=== PATIENT | male | born 1965 | race Caucasian/White ===

== ENCOUNTER 2017-07-18 09:22 | Emergency (ER) | payer OTHER ==
[2017-07-18 09:22] VITALS: BMI 32.3
--- NOTE | 2017-07-18 09:53 | ED PDOC ---
Arrival/HPI - General Chief Complaint: High Blood Sugar Time Seen by Provider: 07/18/17 09:47 Historian: Patient - History of Present Illness Narrative History of Present Illness (Text): 07/18/17 09:48 52 y/o pmh including hyperlipidemia/dm (oral metformin)/CABG, nkda, c/o elevated blood sugar the past 2 weeks. Pt. stated that he has been checking FS at home which noted to be elevated (not sure what number), had 3 pancake this morning around 7am and went to the [facility] to check his FS which noted to be 500s, told to come to the ER, incidentally the patient has been out of the metformin 500mg po bid (only medication his on) for 3 months, no chest pain or shortness of breath, no night sweat, no dizziness, no palpitation, no other medical or psychological complaints. Past Medical History - Provider Review Nursing Documentation Reviewed: Yes - Infectious Disease Hx of Infectious Diseases: None - Cardiac Hx Hypertension: Yes Hx Pacemaker: No Other/Comment: cardiac stent - Neurological Hx Paralysis: No - Endocrine/Metabolic Hx Diabetes Mellitus Type 2: Yes - Hematological/Oncological Hx Blood Transfusions: No Hx Blood Transfusion Reaction: No - Musculoskeletal/Rheumatological Hx Musculoskeletal Disorders: No - Psychiatric Hx Emotional Abuse: No Hx Physical Abuse: No Hx Substance Use: No - Surgical History Hx Open Heart Surgery: Yes - Anesthesia Hx Anesthesia: Yes Hx Anesthesia Reactions: No Hx Malignant Hyperthermia: No - Suicidal Assessment Feels Threatened In Home Enviroment: No Family/Social History - Physician Review Nursing Documentation Reviewed: Yes Family/Social History: Unknown Family HX Smoking Status: Current Some Days Smoker Hx Alcohol Use: Yes Frequency of alcohol use: Socially Hx Substance Use: No Hx Substance Use Treatment: No Allergies/Home Meds Allergies/Adverse Reactions: Allergies No Known Allergies Allergy (Verified 07/18/17 09:40) Review of Systems - Review of Systems Constitutional: Other (+thirsty). absent: Fatigue, Fevers Eyes: absent: Vision Changes ENT: absent: Hearing Changes Respiratory: absent: SOB, Cough Cardiovascular: absent: Chest Pain Gastrointestinal: absent: Abdominal Pain, Nausea, Vomiting Musculoskeletal: absent: Arthralgias, Back Pain Skin: absent: Rash, Pruritis Neurological: absent: Headache, Dizziness Psychiatric: absent: Anxiety, Depression Physical Exam Vital Signs Reviewed: Yes Vital Signs Temp Pulse Resp BP Pulse Ox 07/18/17 12:00 65 18 126/95 H 99 07/18/17 10:05 98.8 F 69 17 154/87 H 98 07/18/17 09:36 98.6 F 77 18 128/77 98 Temperature: Afebrile Blood Pressure: Normal Pulse: Regular Respiratory Rate: Normal Appearance: Positive for: Well-Appearing, Non-Toxic, Comfortable Pain Distress: None Mental Status: Positive for: Alert and Oriented X 3 - Systems Exam Head: Present: Atraumatic, Normocephalic Pupils: Present: PERRL Extroacular Muscles: Present: EOMI Conjunctiva: Present: Normal Mouth: Present: Moist Mucous Membranes Pharnyx: No: ERYTHEMA, EXUDATE, TONSILS ENLARGED Nose (External): Present: Atraumatic. No: Abrasion, Contusion, Laceration Nose (Internal): Present: Normal Inspection, No Active Bleeding. No: Rhinorrhea , Septal Hematoma, Epistaxis Neck: Present: Normal Range of Motion, Trachea Midline. No: Meningeal Signs, MIDLINE TENDERNESS, Paraspinal Tenderness, Lymphadenopathy Respiratory/Chest: Present: Clear to Auscultation, Good Air Exchange. No: Respiratory Distress, Accessory Muscle Use, Wheezes, Decreased Breath Sounds, Rales, Retracting, Rhonchi, Tachypneic, Tender to Palpation Cardiovascular: Present: Regular Rate and Rhythm, Normal S1, S2. No: Murmurs Abdomen: Present: Normal Bowel Sounds. No: Tenderness, Distention, Peritoneal Signs, Rebound, Guarding Back: Present: Normal Inspection Upper Extremity: Present: Normal Inspection. No: Cyanosis, Edema Lower Extremity: Present: Normal Inspection. No: Edema Neurological: Present: GCS=15, CN II-XII Intact, Speech Normal, Motor Func Grossly Intact, Gait Normal, Memory Normal Skin: Present: Warm, Dry, Normal Color. No: Rashes Psychiatric: Present: Alert, Oriented x 3, Normal Insight, Normal Concentration Medical Decision Making ED Course and Treatment: 07/18/17 10:11 -labs/serum osmolarity/ua (no acetone lab available)/abg -IVF bolus -cxr -observe and reassess 07/18/17 13:16 -ABG: ph 7.41, CO2 43, HCO3 27.3: there is no signs of DKA -Labs are non-significant -UA show no UTI but there is glucose -Chest xray show no active disease -Metformin 500mg po ordered. -Finger stick repeat 293 after 2 L of IVF, pt. is asymptomatic, feels well. -I discussed with the patient that he should see his own pmd for hgba1c check with nutrionist and elastic yarn twister for follow up, pt. verbally expressed understanding. -Discharge home with metformin, please follow up with your own pmd for hgba1c check with nutrionist and elastic yarn twister for follow up within 2 days, return to the ER for any new or worsening signs or symptoms. Dont check your sugar after eating as it will always be high. - Lab Interpretations Lab Results: 07/18/17 10:15 07/18/17 10:15 Lab Results 07/18/17 11:49: POC Glucose (mg/dL) 352 H 07/18/17 10:15: Sodium 133, Chloride 95 L, Potassium 4.3, Carbon Dioxide 28, Anion Gap 15, BUN 15, Creatinine 0.6 L, Est GFR ( Amer) > 60, Est GFR ( Non-Af Amer) > 60, Random Glucose 600 H* D, Calcium 10.3, Magnesium 1.9, Total Bilirubin 0.7, AST 21, ALT 38, Alkaline Phosphatase 109, NT-Pro-B Natriuret Pep 29.7, Total Protein 7.0, Albumin 4.0, Globulin 3.0, Albumin/Globulin Ratio 1.3 07/18/17 10:15: WBC 5.9, RBC 4.89, Hgb 14.3 D, Hct 42.5, MCV 86.9, MCH 29.2, MCHC 33.6, RDW 12.8, Plt Count 159, MPV 11.7 H, Gran % 69.6 H, Lymph % (Auto) 21.6 L, [place] % (Auto) 6.6 H, Eos % (Auto) 1.9, Baso % (Auto) 0.3, Gran # 4.13, Lymph # (Auto) 1.3, [place] # (Auto) 0.4, Eos # (Auto) 0.1, Baso # (Auto) 0.02 07/18/17 10:12: pCO2 43, pO2 81.0, HCO3 27.3, ABG pH 7.41, ABG Total CO2 28.6 H , ABG O2 Saturation 97.9, ABG Base Excess 2.2, ABG Potassium 3.8, Sodium 134.0, Chloride 102.0, Glucose 516 H*, Lactate 0.8, FiO2 21.0, Arterial Blood Potassium 3.8 07/18/17 10:01: Urine Color Colorless, Urine Appearance Clear, Urine pH 7.0, Ur Specific [place] 1.010, Urine Protein Negative, Urine Glucose (UA) >=1000, Urine Ketones Negative, Urine Blood Negative, Urine Nitrate Negative, Urine Bilirubin Negative, Urine Urobilinogen 0.2, Ur Leukocyte Esterase Negative 07/18/17 09:50: POC Glucose (mg/dL) > 500 H* - RAD Interpretation Radiology Orders: 07/18/17 10:06 CHEST PORTABLE [RAD] Stat - Medication Orders Current Medication Orders: Discontinued Medications Sodium Chloride (Sodium Chloride 0.9%) 1,000 mls @ 1,000 mls/hr IV .Q1H STA Stop: 07/18/17 11:00 Last Admin: 07/18/17 10:27 Dose: 1,000 mls/hr eMAR Start Stop Document 07/18/17 10:27 SF (Rec: 07/18/17 10:27 [id number] Intravenous Solution Start Date 07/18/17 Start Time 10:27 End Date 07/18/17 End time 11:27 Total Infusion Time 60 Sodium Chloride (Sodium Chloride 0.9%) 1,000 mls @ 999 mls/hr IV .Q1H1M STA Stop: 07/18/17 12:39 Last Admin: 07/18/17 11:56 Dose: 999 mls/hr eMAR Start Stop Document 07/18/17 11:56 SF (Rec: 07/18/17 11:56 [id number] Intravenous Solution Start Date 07/18/17 Start Time 11:56 End Date 07/18/17 End time 12:57 Total Infusion Time 61 Metformin HCl (Glucophage) 500 mg PO STAT STA Stop: 07/18/17 12:30 - 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 Disposition/Present on Arrival - Present on Arrival Any Indicators Present on Arrival: No History of DVT/PE: No History of Uncontrolled Diabetes: No Urinary Catheter: No History of Decub. Ulcer: No History Surgical Site Infection Following: None - Disposition Have Diagnosis and Disposition been Completed?: Yes Diagnosis: Diabetes mellitus, Non-compliant patient, Hyperglycemia Disposition: HOME/ ROUTINE Disposition Time: 11:41 Patient Plan: Discharge Patient Problems: Current Active Problems Problem Status Onset Diabetes mellitus Acute Hyperglycemia Acute Non-compliant patient Acute Condition: IMPROVED Discharge Instructions (ExitCare): Hyperglycemia, Adult (DC), Blood Glucose Monitoring, Diabetes Type 2 (DC), Diabetes and Diet Print Language: LIBERIAN Additional Instructions: -Discharge home with metformin, please follow up with your own pmd for hgba1c check with nutrionist and elastic yarn twister for follow up within 2 days, return to the ER for any new or worsening signs or symptoms. Dont check your sugar after eating as it will always be high. Prescriptions: metFORMIN [glucOPHAGE] 500 mg PO BID #60 tab Referrals: Isabela Chowdhury APN-C [Primary Care Provider] - Follow up with primary Cam,Whitney Tamayo MD [Medical Doctor] - Follow up with primary [facility]] - Follow up with primary Forms: [employer] (Bahraini), WORK NOTE
[2017-07-18] MEDS ORDERED: Sodium Chloride 0.9% 1,000 ML IV STA ×2 (10:01→11:39)
[2017-07-18 10:06] VITALS: TEMP 98.8
[2017-07-18 10:59] LABS: ARTERIAL BLOOD GAS HCO3 27.3 mmol/L (21-28); ARTERIAL BLOOD GAS O2 SAT 97.9 % (95-98); ARTERIAL BLOOD GAS PCO2 43 mm/Hg (35-45); ARTERIAL BLOOD GAS PH 7.41 (7.35-7.45); ARTERIAL BLOOD GAS TCO2 28.6 mmol.L (22-28)
[2017-07-18 11:01] LABS: BASO # 0.02 K/mm3 (0.0-2.0); BASO % 0.3 % (0.0-3.0); EOS # 0.1 (0.0-0.7); EOS % 1.9 % (1.5-5.0); GRAN # 4.13 (1.4-6.5); GRAN % 69.6 % (50.0-68.0); HEMOGLOBIN 14.3 g/dL (14.0-18.0); LYMPH # 1.3 (1.2-3.4); LYMPH % 21.6 % (22.0-35.0); MEAN CELL VOLUME 86.9 fl (80.0-105.0); MEAN CORPUSCULAR HEMOGLOBIN 29.2 pg (25.0-35.0); MEAN CORPUSCULAR HGB CONC 33.6 g/dl (31.0-37.0); MEAN PLATELET VOLUME 11.7 fl (7.0-11.0); MONO # 0.4 (0.1-0.6); MONO % 6.6 % (1.0-6.0); RBC 4.89 10^6/uL (3.5-6.1); RED CELL DISTRIBUTION WIDTH 12.8 % (11.5-14.5); WHITE BLOOD COUNT 5.9 10^3/ul (4.5-11.0)
[2017-07-18 11:15] LABS: B-TYPE NATRIURETIC PEPTIDE 29.7 pg/mL (0-450)
[2017-07-18 11:21] LABS: ALB/GLOB RATIO 1.3 (1.1-1.8); ALT/SGPT 38 U/L (7-56); AST/SGOT 21 U/L (17-59); BLOOD UREA NITROGEN 15 mg/dL (7-21); CALCIUM 10.3 mg/dL (8.4-10.5); GFR AFRICAN-AMERICAN > 60; GFR NON-AFRICAN AMERICAN > 60; MAGNESIUM 1.9 mg/dL (1.7-2.2)
[2017-07-18 11:23] LABS: URINE BILIRUBIN NEGATIVE (NEGATIVE); URINE BLOOD NEGATIVE (NEGATIVE); URINE GLUCOSE (UA) >=1000 mg/dL (NEGATIVE); URINE LEUKOCYTE ESTERASE NEGATIVE Leu/uL (NEGATIVE); URINE NITRATE NEGATIVE (NEGATIVE); URINE PROTEIN NEGATIVE mg/dL (<30 mg/dL); URINE UROBILINOGEN 0.2 E.U./dL (<1 E.U./dL)
[2017-07-18 11:24] LABS: URINE APPEARANCE CLEAR (CLEAR); URINE COLOR COLORLESS (YELLOW)
--- NOTE | 2017-07-18 11:36 | RAD ---
HISTORY: medical clearance COMPARISON: 05/04/2012 FINDINGS: LUNGS: No active pulmonary disease. PLEURA: No significant pleural effusion identified, no pneumothorax apparent. CARDIOVASCULAR: Normal. OSSEOUS STRUCTURES: Sternal wires VISUALIZED UPPER ABDOMEN: Normal. OTHER FINDINGS: None. IMPRESSION: No active disease.
[2017-07-18] MEDS ORDERED: Insulin Regular 1 UNITS/0.01 ML ML IV STA (11:39)
[2017-07-18 12:01] VITALS: BP 126/95; PULSE 65; RESP 18; O2SAT 99
== END 2017-07-18 13:20 | disposition home or self-care (01) ==
LOC: ED 09:22
DX: E11.65 Type 2 diabetes mellitus with hyperglycemia (principal); Z79.84 Long term (current) use of oral hypoglycemic drugs; Z91.19 Patient's noncompliance with other medical treatment and regimen; I10 Essential (primary) hypertension; E78.5 Hyperlipidemia, unspecified; F17.210 Nicotine dependence, cigarettes, uncomplicated
CPT/HCPCS: 71045; 80053; 81003; 82803; 82948; 83735; 83880; 83930; 83935; 85025; 96360; 96361; 99285; J7040

== ENCOUNTER 2017-08-23 00:23 | Emergency (ER) | payer OTHER ==
[2017-08-23 00:24] VITALS: BMI 24.4
--- NOTE | 2017-08-23 00:30 | ED PDOC ---
Arrival/HPI - General Time Seen by Provider: 08/23/17 00:24 Historian: Patient, EMS - History of Present Illness Narrative History of Present Illness (Text): 08/23/17 00:26 A 52 year old male, whose past medical history includes hyperlipidemia, diabetes , and CABG, is brought into the emergency department via EMS for public alcohol intoxication. As per EMS, the patient was picked up off the street. The patient admits to drinking today. The patient denies any pain. Full HPI/ROS is unobtainable due to alcohol intoxication. Time/Duration: Prior to Arrival Symptom Course: Unchanged Context: Street Past Medical History - Provider Review Nursing Documentation Reviewed: Yes - Infectious Disease Hx of Infectious Diseases: None - Cardiac Hx Hypertension: Yes Hx Pacemaker: No Other/Comment: cardiac stent - Neurological Hx Paralysis: No - Endocrine/Metabolic Hx Diabetes Mellitus Type 2: Yes - Hematological/Oncological Hx Blood Transfusions: No Hx Blood Transfusion Reaction: No - Musculoskeletal/Rheumatological Hx Musculoskeletal Disorders: No - Psychiatric Hx Emotional Abuse: No Hx Physical Abuse: No Hx Substance Use: No - Surgical History Hx Open Heart Surgery: Yes - Anesthesia Hx Anesthesia: Yes Hx Anesthesia Reactions: No Hx Malignant Hyperthermia: No - Suicidal Assessment Feels Threatened In Home Enviroment: No Family/Social History - Physician Review Nursing Documentation Reviewed: Yes Family/Social History: No Known Family HX Smoking Status: Current Some Days Smoker Hx Alcohol Use: Yes Hx Substance Use: No Hx Substance Use Treatment: No Allergies/Home Meds Allergies/Adverse Reactions: Allergies No Known Allergies Allergy (Verified 07/18/17 09:40) Review of Systems - Physician Review All systems were reviewed & negative as marked: Yes - Review of Systems Systems not reviewed;Unavailable: Intoxicated Physical Exam - Physical Exam Narrative Physical Exam (Text): 08/23/17 00:28 Constitutional: No acute distress. Head: Atraumatic. Eyes: PERRL. ENT: Moist mucous membranes. Neck: Supple. No midline tenderness. Cardiovascular: Regular rate. Chest: No tenderness. Respiratory: Clear to auscultation bilaterally. GI: Soft. Nontender. Nondistended. Back: No CVA tenderness. No midline tenderness. Musculoskeletal: No tenderness or swelling of extremities. Full ROM x4. Pelvis stable. Skin: No rash. Midline sternotomy scar (old) Neurologic: Alert, no focal deficit. Vital Signs Temp Pulse Resp BP Pulse Ox 08/23/17 05:34 87 19 142/87 99 08/23/17 03:25 108 H 18 150/79 99 08/23/17 00:30 97.8 F 88 16 131/86 97 Medical Decision Making ED Course and Treatment: 08/23/17 00:30 Impression: A 52 year old male is brought into the emergency department by EMS for public alcohol intoxication. Plan: -- Reassess and disposition Progress Notes: 08/23/17 02:44: Patient was getting up and urinating on vital machine. Patient was sedated with 5mg of Haldol and placed on a monitor. 08/23/17 05:19: Restraints ordered and 2mg of Ativan administered. 08/23/17 06:21 Signed out to ED day team. - Lab Interpretations Lab Results: Lab Results 08/23/17 01:09: Alcohol, Quantitative 381 H* I have reviewed the lab results: Yes - Medication Orders Current Medication Orders: Discontinued Medications Haloperidol Lactate (Haldol) 5 mg IM STAT STA PRN Reason: Protocol Stop: 08/23/17 02:42 Last Admin: 08/23/17 02:44 Dose: IM Administration Charges Document 08/23/17 02:44 MS (Rec: 08/23/17 02:44 MS [id number]) Injection Site MAR Injection Site Left Deltoid Charges for Administration # of IM Administrations 1 Lorazepam (Ativan) 2 mg IM ONCE ONE PRN Reason: Protocol Stop: 08/23/17 05:18 Last Admin: 08/23/17 05:22 Dose: 2 mg IM Administration Charges Document 08/23/17 05:22 CNR (Rec: 08/23/17 05:23 CNR [id number]) Injection Site MAR Injection Site Right Deltoid Charges for Administration # of IM Administrations 1 - Scribe Statement The provider has reviewed the documentation as recorded by the Scribe Yesi Browne Provider Scribe Attestation: All medical record entries made by the Scribe were at my direction and personally dictated by me. I have reviewed the chart and agree that the record accurately reflects my personal performance of the history, physical exam, medical decision making, and the department course for this patient. I have also personally directed, reviewed, and agree with the discharge instructions and disposition. Disposition/Present on Arrival - Present on Arrival Any Indicators Present on Arrival: No History of DVT/PE: No History of Uncontrolled Diabetes: No Urinary Catheter: No History Surgical Site Infection Following: None - Disposition Have Diagnosis and Disposition been Completed?: No Diagnosis: Alcohol intoxication Disposition Time: 06:21 Condition: STABLE Referrals: PCP,NO [Primary Care Provider] - Follow up with primary
--- NOTE | 2017-08-23 07:08 | ED PDOC ---
Physical Exam Vital Signs Reviewed: Yes Vital Signs Temp Pulse Resp BP Pulse Ox 08/23/17 09:00 98.6 F 84 18 111/63 95 08/23/17 05:34 87 19 142/87 99 08/23/17 03:25 108 H 18 150/79 99 08/23/17 00:30 97.8 F 88 16 131/86 97 Temperature: Afebrile Blood Pressure: Normal Pulse: Regular Respiratory Rate: Normal Appearance: Positive for: Well-Appearing Pain Distress: None Mental Status: Positive for: Alert and Oriented X 3, other (slurr speech ( likely etoh), alert/awake, GCS = 15, oriented x 3, uncomfortable, NAD, cooperative) Finger Stick Blood Glucose: 193 - Systems Exam Head: Present: Atraumatic, Normocephalic Pupils: Present: PERRL, Other (no nystagmus, no photophobia, sclera anicteric) Extroacular Muscles: Present: EOMI Conjunctiva: Present: Normal Ears: Present: Normal Mouth: Present: Moist Mucous Membranes, Normal Teeth Pharnyx: Present: Normal Nose (Internal): Present: Normal Inspection Neck: Present: Normal Range of Motion, Trachea Midline. No: MIDLINE TENDERNESS Respiratory/Chest: Present: Clear to Auscultation, Good Air Exchange Cardiovascular: Present: Regular Rate and Rhythm, Normal S1, S2. No: Murmurs Abdomen: Present: Normal Bowel Sounds, Other (well nourished male, no focal tenderness, no delatorre's sign, no mcburney's point tenderness, no masses/rebound/ guarding/rigidity) Back: Present: Normal Inspection. No: CVA Tenderness, Midline Tenderness Upper Extremity: Present: Normal Inspection, Normal ROM, NORMAL PULSES, Neurovascularly Intact. No: Deformity Lower Extremity: Present: Normal Inspection, NORMAL PULSES, Normal ROM, Neurovascularly Intact, Capillary Refill < 2 s Neurological: Present: GCS=15, CN II-XII Intact Skin: Present: Warm, Dry, Normal Color, Other (cap refill < 1sec, no ulcerations , no petechiae) Psychiatric: Present: Alert Medical Decision Making ED Course and Treatment: 08/23/17 07:07 pt was endorsed to me by Dr Dickinson, awaiting soberity; due to patient's behavior, pt was chemically sedated as well; pt can be dispositioned accordingly 08/23/17 09:45 pt is now wide awake pt still appearing slightly groggy but answers questions appropriately pt states he is not suicidal/homicidal pt states he has no hallucinations - visual/auditory/tactile vital signs are stable pt is able to ambulate without any difficulties pt is made aware of his medical results pt is encouraged not to drink alcohol/avoid smoking if he smokes pt is encouraged to take his medications pt is encouraged fluid hydration pt will f/u as directed pt will be discharged home Re-evaluation Time: 09:39 Reassessment Condition: Re-examined, Improved - Lab Interpretations Lab Results: Lab Results 08/23/17 01:09: Alcohol, Quantitative 381 H* I have reviewed the lab results: Yes Interpretation: Abnormal lab values (+ elevated etoh) - Medication Orders Current Medication Orders: Discontinued Medications Haloperidol Lactate (Haldol) 5 mg IM STAT STA PRN Reason: Protocol Stop: 08/23/17 02:42 Last Admin: 08/23/17 02:44 Dose: IM Administration Charges Document 08/23/17 02:44 MS (Rec: 08/23/17 02:44 MS [id number]) Injection Site MAR Injection Site Left Deltoid Charges for Administration # of IM Administrations 1 Lorazepam (Ativan) 2 mg IM ONCE ONE PRN Reason: Protocol Stop: 08/23/17 05:18 Last Admin: 08/23/17 05:22 Dose: 2 mg IM Administration Charges Document 08/23/17 05:22 CNR (Rec: 08/23/17 05:23 CNR [id number]) Injection Site MAR Injection Site Right Deltoid Charges for Administration # of IM Administrations 1 Disposition/Present on Arrival - Present on Arrival Any Indicators Present on Arrival: No History of DVT/PE: No History of Uncontrolled Diabetes: No Urinary Catheter: No History of Decub. Ulcer: No History Surgical Site Infection Following: None - Disposition Have Diagnosis and Disposition been Completed?: Yes Diagnosis: Alcohol intoxication, Alcohol abuse, General medical exam Disposition: HOME/ ROUTINE Disposition Time: 10:00 Patient Plan: Discharge Patient Problems: Current Active Problems Problem Status Onset Alcohol intoxication Acute Condition: STABLE Discharge Instructions (ExitCare): Alcohol Abuse and Alcoholism (DC), Effects of Alcohol on Your Health Print Language: KOSOVAN Additional Instructions: Make sure to see your doctor in 1-2 days DRINK PLENTY OF FLUIDS DONT DRINK ALCOHOL DONT smoke if you smoke take your medications as prescribed RETURN TO ED IF worse pain, cant breath, persistent vomiting, high fever >101- 102 for hours, altered behavior, slurr speech, facial changes, focal weakness ( arm/leg or both), severe depression, suicidal/homicidal thoughts, unable to urinate, heavy/persistent bleeding, passing out, chest pain, or other medical emergencies Referrals: PCP,NO [Primary Care Provider] - Follow up with primary [facility] [place] [facility] [place] - Follow up with primary Forms: [employer] (Iranian)
[2017-08-23 09:32] VITALS: BP 111/63; PULSE 84; RESP 18; TEMP 98.6; O2SAT 95
== END 2017-08-23 10:03 | disposition home or self-care (01) ==
LOC: ED 00:23
DX: F10.129 Alcohol abuse with intoxication, unspecified (principal); E78.5 Hyperlipidemia, unspecified; E11.9 Type 2 diabetes mellitus without complications; I10 Essential (primary) hypertension; F17.200 Nicotine dependence, unspecified, uncomplicated
CPT/HCPCS: 80320; 96372; 99285; J1630; J2060

== ENCOUNTER 2017-10-18 00:40 | Emergency (ER) | payer OTHER ==
[2017-10-18 00:41] VITALS: BMI 24.4
[2017-10-18 00:54] VITALS: RESP 18; TEMP 98.4
--- NOTE | 2017-10-18 00:56 | ED PDOC ---
Arrival/HPI - General Historian: Patient, EMS - History of Present Illness Time/Duration: Prior to Arrival Symptom Course: Unchanged Activities at Onset: Rest, Light Context: Home <Hi Powers - Last Filed: 10/18/17 01:51> <CrystalvirginiaEzekiel - Last Filed: 10/18/17 06:38> - General Time Seen by Provider: 10/18/17 00:48 - History of Present Illness Narrative History of Present Illness (Text): 10/18/17 00:52 A 52 year old male, whose past medical history includes hypertension, diabetes, CAD, presents to the emergency department via EMS for alcohol intoxication. Patient presents to the emergency department for further evaluation after he was found at home intoxicated by . She called Devorah PANDYA, who called EMS to bring the patient into the emergency department. Patient presents with a fingerstick of 251, +etoh. He is alert and oriented X 3. The patient currently denies any complaints. The patient denies fevers, chills, headache, dizziness, chest pain, shortness of breath, dyspnea on exertion, cough, abdominal pain, nausea, vomiting, diarrhea, back pain, neck pain, urinary/bowel changes, suicidal/homicidal ideation, auditory/visual hallucination, trauma/injury or any other complaint. (Hi Powers) Past Medical History - Provider Review Nursing Documentation Reviewed: Yes - Infectious Disease Hx of Infectious Diseases: None - Cardiac Hx Hypertension: Yes Hx Pacemaker: No Other/Comment: cardiac stent - Neurological Hx Paralysis: No - Endocrine/Metabolic Hx Diabetes Mellitus Type 2: Yes - Hematological/Oncological Hx Blood Transfusions: No Hx Blood Transfusion Reaction: No - Musculoskeletal/Rheumatological Hx Musculoskeletal Disorders: No - Psychiatric Hx Emotional Abuse: No Hx Physical Abuse: No Hx Substance Use: No - Surgical History Hx Open Heart Surgery: Yes - Anesthesia Hx Anesthesia: Yes Hx Anesthesia Reactions: No Hx Malignant Hyperthermia: No - Suicidal Assessment Feels Threatened In Home Enviroment: No <Hi Powers - Last Filed: 10/18/17 01:51> Family/Social History - Physician Review Nursing Documentation Reviewed: Yes Family/Social History: No Known Family HX Smoking Status: Current Some Days Smoker Hx Alcohol Use: Yes Hx Substance Use: No Hx Substance Use Treatment: No <Hi Powers - Last Filed: 10/18/17 01:51> Allergies/Home Meds <Hi Powers - Last Filed: 10/18/17 01:51> <CrystalvirginiaEzekiel - Last Filed: 10/18/17 06:38> Allergies/Adverse Reactions: Allergies No Known Allergies Allergy (Verified 10/18/17 00:49) Home Medications: Home Meds Medication Instructions Recorded Confirmed Unobtainable 10/18/17 10/18/17 Review of Systems - Physician Review All systems were reviewed & negative as marked: Yes - Review of Systems Systems not reviewed;Unavailable: Intoxicated Constitutional: absent: Fevers, Night Sweats Respiratory: absent: SOB, Cough Cardiovascular: absent: Chest Pain, HOUSE Gastrointestinal: absent: Abdominal Pain, Stool Changes, Diarrhea, Nausea, Vomiting Genitourinary Male: absent: Urinary Output Changes Musculoskeletal: absent: Back Pain, Neck Pain Neurological: absent: Headache, Dizziness Psychiatric: absent: Anxiety, Depression, Suicidal Ideation <Hi Powers Kim - Last Filed: 10/18/17 01:51> Physical Exam Vital Signs Reviewed: Yes Temperature: Afebrile Blood Pressure: Hypertensive Pulse: Tachycardic Respiratory Rate: Normal Appearance: Positive for: Well-Appearing, Non-Toxic, Comfortable Pain Distress: None Mental Status: Positive for: Alert and Oriented X 3 - Systems Exam Head: Present: Atraumatic, Normocephalic Pupils: Present: PERRL Extroacular Muscles: Present: EOMI Conjunctiva: Present: Normal Ears: Present: NORMAL TM, Normal Canal. No: Erythema Mouth: Present: Moist Mucous Membranes Pharnyx: Present: Normal. No: ERYTHEMA, EXUDATE, TONSILS ENLARGED Nose (External): Present: Atraumatic. No: Abrasion, Contusion, Laceration, Lesions Nose (Internal): Present: Normal Inspection, No Active Bleeding. No: Rhinorrhea , Septal Deviation, Septal Hematoma, Epistaxis Neck: Present: Normal Range of Motion Respiratory/Chest: Present: Clear to Auscultation, Good Air Exchange. No: Respiratory Distress, Accessory Muscle Use Cardiovascular: Present: Regular Rate and Rhythm, Normal S1, S2. No: Murmurs Abdomen: No: Tenderness, Distention, Peritoneal Signs Back: Present: Normal Inspection Upper Extremity: Present: Normal Inspection. No: Cyanosis, Edema Lower Extremity: Present: Normal Inspection. No: Edema Neurological: Present: GCS=15, CN II-XII Intact, Speech Normal, Motor Func Grossly Intact, Gait Normal, Memory Normal Skin: Present: Warm, Dry, Normal Color. No: Rashes Psychiatric: Present: Alert, Oriented x 3, Normal Insight, Normal Concentration , Intoxicated <Hi Powers - Last Filed: 10/18/17 01:51> Vital Signs Temp Pulse Resp BP Pulse Ox 10/18/17 01:26 103 H 18 129/88 95 10/18/17 00:50 98.4 F 119 H 18 171/90 H 98 Medical Decision Making <Hi Powers - Last Filed: 10/18/17 01:51> <Ezekiel Tamayo - Last Filed: 10/18/17 06:38> ED Course and Treatment: 10/18/17 00:57 Impression: A 52 year old male is brought into the emergency department via EMS for alcohol intoxication. Plan: -- Finger Stick -- Pending Sobriety -- Reassess and disposition 10/18/17 02:00 -Pt. is sleeping, easily arousable, endorsed the case to Dr. Tamayo and he will re-evaluate and final dispo the patient. (Hi Powers) 10/18/17 03:05: Patient endorsed to me by KAUSHIK Powers. Pending sobriety. Will reassess and disposition patient. (Ezekiel Tamayo) - Lab Interpretations Lab Results: Lab Results 10/18/17 00:50: POC Glucose (mg/dL) 250 H - PA / CHLOROBUTADIENE SCRUBBER OPERATOR / Resident Statement / has reviewed & agrees with the documentation as recorded. - Scribe Statement The provider has reviewed the documentation as recorded by the Scribe <Hi Powers - Last Filed: 10/18/17 01:51> - PA / CHLOROBUTADIENE SCRUBBER OPERATOR / Resident Statement KAREN has reviewed & agrees with the documentation as recorded. <Ezekiel Tamayo - Last Filed: 10/18/17 06:38> - Scribe Statement Yesi Browne Provider Scribe Attestation: All medical record entries made by the Scribe were at my direction and personally dictated by me. I have reviewed the chart and agree that the record accurately reflects my personal performance of the history, physical exam, medical decision making, and the department course for this patient. I have also personally directed, reviewed, and agree with the discharge instructions and disposition. (Hi Powers) Disposition/Present on Arrival - Present on Arrival Any Indicators Present on Arrival: No History of DVT/PE: No History of Uncontrolled Diabetes: No Urinary Catheter: No History of Decub. Ulcer: No History Surgical Site Infection Following: None - Disposition Disposition Time: 01:04 <Hi Powers - Last Filed: 10/18/17 01:51> - Present on Arrival Any Indicators Present on Arrival: No - Disposition Have Diagnosis and Disposition been Completed?: Yes <Ezekiel Tamayo - Last Filed: 10/18/17 06:38> - Disposition Diagnosis: Alcohol abuse Disposition: HOME/ ROUTINE Condition: GOOD Discharge Instructions (ExitCare): Alcohol Abuse and Alcoholism (DC) Forms: [employer] (Mexican)
[2017-10-18 06:49] VITALS: BP 118/89; PULSE 92; O2SAT 100
== END 2017-10-18 06:45 | disposition home or self-care (01) ==
LOC: ED 00:40
DX: F10.10 Alcohol abuse, uncomplicated (principal)

== ENCOUNTER 2017-11-23 12:54 | Emergency (ER) | payer OTHER ==
[2017-11-23 12:54] VITALS: BMI 24.4
[2017-11-23 13:05] VITALS: TEMP 98.2; O2SAT 98
[2017-11-23] MEDS ORDERED: Sodium Chloride 0.9% 500 ML IV STA (13:27)
--- NOTE | 2017-11-23 13:27 | ED PDOC ---
Arrival/HPI - General Historian: Patient, Spouse - History of Present Illness Time/Duration: Other (2 days) Symptom Onset: Gradual Symptom Course: Other (pain is constant, but pain intensity fluctuates up and down) Quality: Pressure (lucio behind R eye and in R jaw) - General Chief Complaint: Headache Time Seen by Provider: 11/23/17 12:59 - History of Present Illness Narrative History of Present Illness (Text): 11/23/17 13:29 This is a 52 yo M with PMH of HTN, HLD, DM, CAD s/p stents and CABG, and hx of alcohol abuse who presents with complaint of right-sided headache, extending from forehead, behind R-eye, into right lateral face and jaw, and into right neck (scalenes region). Reports began two days ago, non-stop but with fluctuating degree of pain. Reports previously compliant with meds, but ran out > 1 week ago and has been unable to follow up with Doctor at [facility]. Denies any room-spinning, near-syncope, syncope, vision changes, loss of vision, loss of sensation in face, hemiplegia, hemiparesis, focal weakness, nausea, emesis, photophobia, phonophobia, chest pain, shortness of breath. Does complain of right ear tinnitis, reports grinds his teeth at night. All other ROS in 12-system review negative. PMH: as above PSH: Cardiac cath with stents, CABG Fam Hx: pt unaware of fam hx Soc Hx: active smoker (~ 1/2 ppd x 25 yrs), hx alcohol abuse (up to 12 beers daily) but reports no alcohol since last ED visit (September 2017), denies illicits PMD: Follows CLARISSA Chowdhury at [facility] (Jak Rausch) Past Medical History - Provider Review Nursing Documentation Reviewed: Yes - Infectious Disease Hx of Infectious Diseases: None - Cardiac Hx Hypertension: Yes Hx Pacemaker: No Other/Comment: cardiac stent - Pulmonary Hx Respiratory Disorders: No - Neurological Hx Paralysis: No - HEENT Hx HEENT Disorder: No - Renal Hx Renal Disorder: No - Endocrine/Metabolic Hx Diabetes Mellitus Type 2: Yes - Hematological/Oncological Hx Blood Transfusions: No Hx Blood Transfusion Reaction: No - Integumentary Hx Dermatological Disorder: No - Musculoskeletal/Rheumatological Hx Musculoskeletal Disorders: No - Gastrointestinal Hx Gastrointestinal Disorders: No - Genitourinary/Gynecological Hx Genitourinary Disorders: No - Psychiatric Hx Emotional Abuse: No Hx Physical Abuse: No Hx Substance Use: No - Surgical History Hx Coronary Artery Bypass Graft: Yes Hx Coronary Stent: Yes Hx Open Heart Surgery: Yes - Anesthesia Hx Anesthesia: Yes Hx Anesthesia Reactions: No Hx Malignant Hyperthermia: No - Suicidal Assessment Feels Threatened In Home Enviroment: No Family/Social History - Physician Review Nursing Documentation Reviewed: Yes Family/Social History: Unknown Family HX Smoking Status: Current Some Days Smoker Hx Alcohol Use: Yes Hx Substance Use: No Hx Substance Use Treatment: No Allergies/Home Meds Allergies/Adverse Reactions: Allergies No Known Allergies Allergy (Verified 11/23/17 13:02) Home Medications: Home Meds Medication Instructions Recorded Confirmed Unobtainable 10/18/17 10/18/17 Review of Systems - Physician Review All systems were reviewed & negative as marked: Yes (as per HPI) - Review of Systems Constitutional: Normal. absent: Fatigue, Fevers Eyes: Eye Pain (pressure behind right eye). absent: Vision Changes, Photophobia ENT: Tinnitus (right ear), TMJ Pain (right jaw). absent: Voice Changes, Sore Throat, Rhinorrhea, Epistaxis, Sinus Congestion Respiratory: Normal. absent: SOB, Cough, Wheezing Cardiovascular: Normal. absent: Chest Pain, Palpitations, HOUSE, Syncope Gastrointestinal: Normal. absent: Abdominal Pain, Constipation, Diarrhea, Nausea, Vomiting Genitourinary Male: Normal. absent: Dysuria, Frequency, Hematuria Musculoskeletal: Neck Pain (right-sided neck pain (scalene region)). absent: Back Pain Skin: Normal. absent: Rash, Pruritis Neurological: Headache (right forehead). absent: Dizziness, Focal Weakness, Gait Changes, Speech Changes, Facial Droop, Disequilibrium Endocrine: Normal. absent: Diaphoresis Physical Exam Vital Signs Reviewed: Yes Temperature: Afebrile Blood Pressure: Normal Pulse: Regular Respiratory Rate: Normal Appearance: Positive for: Well-Appearing, Non-Toxic, Comfortable Pain Distress: Mild Mental Status: Positive for: Alert and Oriented X 3 - Systems Exam Head: Present: Atraumatic, Normocephalic. No: Tenderness, Contusion, Swelling, Ecchymosis, Abrasion, Laceration Pupils: Present: PERRL. No: Sluggish, Non-Reactive, Pinpoint Extroacular Muscles: Present: EOMI. No: Gaze Palsy, Entrapment Conjunctiva: Present: Normal. No: Injected, Icteric Mouth: Present: Moist Mucous Membranes, Normal Lips, Normal Tounge, Normal Teeth. No: Dry, Drooling Pharnyx: Present: Normal. No: ERYTHEMA, EXUDATE, Uvular Deviation Nose (External): Present: Atraumatic. No: Abrasion, Laceration Nose (Internal): Present: No Active Bleeding. No: Epistaxis Neck: Present: Normal Range of Motion, Trachea Midline, Other (Right TMJ tenderness, greater protrusion of R TMJ on opening of mouth as compared to L; mild tenderness to palpation along R scalenes region, statically tender along R jaw and R neck). No: MIDLINE TENDERNESS, JVD Respiratory/Chest: Present: Clear to Auscultation, Good Air Exchange. No: Respiratory Distress, Accessory Muscle Use, Wheezes, Decreased Breath Sounds, Rales, Rhonchi, Tachypneic, Tender to Palpation Cardiovascular: Present: Regular Rate and Rhythm, Normal S1, S2, Peripheal Pulses Present (+2 radials). No: Murmurs, Irregular Rhythm, Tachycardic, Bradycardic Abdomen: Present: Normal Bowel Sounds. No: Tenderness, Distention, Peritoneal Signs, Guarding, Mass/Organomegaly Upper Extremity: Present: Normal Inspection, Normal ROM, NORMAL PULSES. No: Cyanosis, Edema, Tenderness, Swelling, Erythema, Deformity Lower Extremity: Present: Normal Inspection, Normal ROM. No: Edema, CALF TENDERNESS, Cyanosis, Tenderness, Swelling, Erythema, Deformity Neurological: Present: GCS=15, CN II-XII Intact, Speech Normal, Motor Func Grossly Intact, Normal Sensory Function, Other (motor strength 5/5 on all extremities flexion and extention, and 5/5 lvn lpn strength bilaterally) Skin: Present: Warm, Dry, Normal Color. No: Rashes Lymphatic: No: Cervical Adenopathy Psychiatric: Present: Alert, Oriented x 3, Normal Insight, Normal Concentration , Anxious Vital Signs Temp Pulse Resp BP Pulse Ox 11/23/17 16:15 71 18 126/71 98 11/23/17 16:00 71 18 98 11/23/17 13:00 98.2 F 76 20 143/88 98 Medical Decision Making Reassessment Condition: Re-examined, Improved ED Course and Treatment: 11/23/17 13:52 Ddx: R cluster headache vs migraine vs headache 2/2 TMJ syndrome, less likely acute stroke but will r/o No neurologic abnormalities appreciated on exam, no sided-deficits appreciated Will obtain CT head to rule out bleed or acute stroke Tylenol 975 mg PO x1 for headache, avoid NSAID until bleed ruled out CBC, CMP ordered to assess for acute metabolic derangement or infectious process f/u and reassess for dispo 11/23/17 15:[address] negative Headache resolved by time of return from CT head Discharged home with instructions to schedule follow up with [facility], Excedrin or Tylenol PRN for headaches. Pt expressed understanding and agreement Seen, reviewed, and discussed with attending, Dr. Mcdonald ([facility]) 11/24/17 07:48 pt seen with resident casarez x 2 days no thunderclap features neuro intact. labs ct neg. advise outpt fu return precautions (Augustine Mcdonald) - Lab Interpretations Lab Results: 11/23/17 14:02 11/23/17 14:02 Lab Results 11/23/17 14:02: Sodium 141, Potassium 4.3, Chloride 106, Carbon Dioxide 24, Anion Gap 15, BUN 23 H, Creatinine 0.7 L, Est GFR ( Amer) > 60, Est GFR ( Non-Af Amer) > 60, Random Glucose 265 H, Calcium 9.2, Total Bilirubin 0.4, AST 22, ALT 31, Alkaline Phosphatase 74, Total Protein 6.4, Albumin 3.8, Globulin 2.6, Albumin/Globulin Ratio 1.4 11/23/17 14:02: PT 10.6, INR 0.92 L, APTT 36.2 11/23/17 14:02: WBC 5.0, RBC 4.46, Hgb 13.5 L, Hct 39.0 L, MCV 87.4, MCH 30.3, MCHC 34.6, RDW 12.6, Plt Count 186, MPV 11.1 H, Gran % 59.3, Lymph % (Auto) 28.4 , Hinds % (Auto) 8.3 H, Eos % (Auto) 3.6, Baso % (Auto) 0.4, Gran # 2.98, Lymph # (Auto) 1.4, Hinds # (Auto) 0.4, Eos # (Auto) 0.2, Baso # (Auto) 0.02 - RAD Interpretation Radiology Orders: 11/23/17 13:27 HEAD W/O CONTRAST [CT] Stat - Medication Orders Current Medication Orders: Discontinued Medications Acetaminophen (Tylenol 325mg Tab) 975 mg PO STAT STA Stop: 11/23/17 13:28 Last Admin: 11/23/17 13:58 Dose: 975 mg MAR Pain/Vitals Document 11/23/17 13:58 EQ (Rec: 11/23/17 13:58 EQ [id number]) Pain Reassessment Is This A Pain ReAssessment? No Sleep Is patient sleeping during reassessment? No Presence of Pain Presence of Pain Yes Sodium Chloride (Sodium Chloride 0.9%) 500 mls @ 999 mls/hr IV .Q31M STA Stop: 11/23/17 13:57 Last Admin: 11/23/17 14:00 Dose: 999 mls/hr eMAR Start Stop Document 11/23/17 14:00 EQ (Rec: 11/23/17 14:00 EQ [id number]) Intravenous Solution Start Date 11/23/17 Start Time 14:00 End Date 11/23/17 Disposition/Present on Arrival - Present on Arrival Any Indicators Present on Arrival: No History of DVT/PE: No History of Uncontrolled Diabetes: No Urinary Catheter: No History of Decub. Ulcer: No History Surgical Site Infection Following: None - Disposition Have Diagnosis and Disposition been Completed?: Yes Disposition Time: 15:20 - Disposition Diagnosis: Tension headache, TMJ (temporomandibular joint syndrome) Disposition: HOME/ ROUTINE Condition: FAIR Discharge Instructions (ExitCare): Headache, Adult (DC) Additional Instructions: Please use either Tylenol or Excedrin as needed for your headache and/or your TMJ Pain. Please make an appointment at the [facility] for follow-up and refills of your cardiac medications as soon as possible (referral has been placed in your papers) Please return to a hospital if you experience worsening or newly concerning symptoms. TAMIA HELLER, thank you for letting us take care of you today. Your provider was Augustine Mcdonald DO and you were treated for FACE PAIN. The emergency medical care you received today was directed at your acute symptoms. If you were prescribed any medication, please fill it and take as directed. It may take several days for your symptoms to resolve. Return to the Emergency Department if your symptoms worsen, do not improve, or if you have any other problems. Please contact your doctor or call one of the physicians/clinics you have been referred to that are listed on the Patient Visit Information form that is included in your discharge packet. Bring any paperwork you were given at discharge with you along with any medications you are taking to your follow up visit. Our treatment cannot replace ongoing medical care by a primary care provider outside of the emergency department. Thank you for allowing the [facility] team to be part of your care today. If you had an X-Ray or CT scan: A Radiologist will review the ED reading if any change in treatment is needed we will contact you. If you had a blood, urine, or wound culture: It will take several days for the results, if any change in treatment is needed we will contact you. If you had an STI test: It will take 48 hours for the results. Please call after 1 week if you have not heard back. Referrals: [facility] [place] [facility] [facility] [place] - Follow up with primary Isabela Chowdhury APN-C [Primary Care Provider] - Follow up with primary Forms: [employer] (Citizen Of [place])
[2017-11-23 14:10] LABS: BASO # 0.02 K/mm3 (0.0-2.0); BASO % 0.4 % (0.0-3.0); EOS # 0.2 (0.0-0.7); EOS % 3.6 % (1.5-5.0); GRAN # 2.98 (1.4-6.5); GRAN % 59.3 % (50.0-68.0); HEMOGLOBIN 13.5 g/dL (14.0-18.0); LYMPH # 1.4 (1.2-3.4); LYMPH % 28.4 % (22.0-35.0); MEAN CELL VOLUME 87.4 fl (80.0-105.0); MEAN CORPUSCULAR HEMOGLOBIN 30.3 pg (25.0-35.0); MEAN CORPUSCULAR HGB CONC 34.6 g/dl (31.0-37.0); MEAN PLATELET VOLUME 11.1 fl (7.0-11.0); MONO # 0.4 (0.1-0.6); MONO % 8.3 % (1.0-6.0); RBC 4.46 10^6/uL (3.5-6.1); RED CELL DISTRIBUTION WIDTH 12.6 % (11.5-14.5)
[2017-11-23 14:16] LABS: ALB/GLOB RATIO 1.4 (1.1-1.8); ALBUMIN 3.8 g/dL (3.0-4.8); ALT/SGPT 31 U/L (7-56); AST/SGOT 22 U/L (17-59); BLOOD UREA NITROGEN 23 mg/dL (7-21); CALCIUM 9.2 mg/dL (8.4-10.5); GFR AFRICAN-AMERICAN > 60; GFR NON-AFRICAN AMERICAN > 60
--- NOTE | 2017-11-23 14:23 | CT ---
PROCEDURE: CT HEAD WITHOUT CONTRAST. HISTORY: Headache COMPARISON: None available. TECHNIQUE: Axial computed tomography images were obtained through the head/brain without intravenous contrast. Coronal and sagittal reconstructed images. Radiation dose: Total exam DLP = 918.19 mGy-cm. This CT exam was performed using one or more of the following dose reduction techniques: Automated exposure control, adjustment of the mA and/or kV according to patient size, and/or use of iterative reconstruction technique. FINDINGS: HEMORRHAGE: No intracranial hemorrhage. BRAIN: No mass effect or edema. No atrophy or chronic microvascular ischemic changes. VENTRICLES: Unremarkable. No hydrocephalus. CALVARIUM: Unremarkable. PARANASAL SINUSES: Unremarkable as visualized. No significant inflammatory changes. MASTOID AIR CELLS: Unremarkable as visualized. No inflammatory changes. OTHER FINDINGS: None. IMPRESSION: No acute intracranial abnormalities. No significant findings to account for the clinical presentation.
[2017-11-23 14:28] LABS: INR 0.92 (0.93-1.08); PARTIAL THROMBOPLASTIN TIME 36.2 Seconds (25.1-36.5); PROTHROMBIN TIME 10.6 SECONDS (9.4-12.5)
[2017-11-23 16:17] VITALS: BP 126/71; PULSE 71; RESP 18
== END 2017-11-23 16:00 | disposition home or self-care (01) ==
LOC: ED 12:54
DX: G44.209 Tension-type headache, unspecified, not intractable (principal); M26.621 Arthralgia of right temporomandibular joint; E11.9 Type 2 diabetes mellitus without complications; E78.5 Hyperlipidemia, unspecified; I10 Essential (primary) hypertension; I25.10 Atherosclerotic heart disease of native coronary artery without angina pectoris; Z95.1 Presence of aortocoronary bypass graft
CPT/HCPCS: 70450; 80053; 85025; 85610; 85730; 99285; J7040